=== PATIENT | male | born 1945 | race Caucasian/White ===

== ENCOUNTER 2018-01-09 17:46 | Emergency (ER) | payer MEDICARE ==
[2018-01-09] MEDS ORDERED: Catapres 0.1 MG PO ONE ×2 (18:24→22:33)
[2018-01-09] MEDS ORDERED: Catapres 0.1 MG ONE ×3 (18:29→22:44)
[2018-01-09] MEDS ORDERED: Sodium Chloride 0.9% 1000 ML 1,000 ML IV SCH (18:30)
[2018-01-09] MEDS ORDERED: Sodium Chloride 0.9% 1000 ML 1,000 ML ONE (18:30)
--- NOTE | 2018-01-09 18:41 | ERPHSYRPT ---
- History of Present Illness Time Seen by Provider: 01/09/18 18:05 Exam Limitations: clinical condition Patient Subjective Stated Complaint: pt reports he has had a headache for a few days-states that otc advil is not helping-denies pain elsewhere-denies sob Triage Nursing Assessment: pt pink warm and [id number] easy and nonlabored- moving all extremities with ease Physician History: PATIENT WITH A HISTORY OF HEADACHES SINCE NOV 08, 2017, PROGRESSIVE DISCOMFORT X 2 DAYS. STATES HIS BLOOD PRESSURE HAS BEEN ELEVATED X 1 WEEK. DENIE BLURRED VISION, SLURRED SPEECH, UNSTEADY GAIT. HAS HAD A PREVIOUS NORMAL HEAD CT AT [facility] 2 MONTHS AGO. Timing/Duration: day(s) Quality: throbbing Head Pain Location: global Severity of Pain-Max: moderate Severity of Pain-Current: moderate Recent Head Trauma: frequent headaches Modifying Factors: Improves With: exposure to light Associated Symptoms: denies symptoms Previous symptoms: same symptoms as today Allergies/Adverse Reactions: No Known Drug Allergies Allergy (Verified 01/09/18 17:58) Home Medications: Lisinopril 40 mg PO BID 09/26/15 [History] Oxycodone HCl/Acetaminophen [Percocet 7.5-325 mg Tablet] 1 each PO Q4-6HPRN PRN 04/21/16 [History] Aspirin 81 gm Chew [Baby Aspirin 81 mg Chew] 1 tab PO BID 09/09/16 [ History] Multivitamin [Multivitamins] 1 each PO DAILY 09/09/16 [History] Pantoprazole 40 mg [Protonix 40 mg IV] 40 mg PO BID 04/19/17 [History] Carvedilol 12.5 mg [Coreg 12.5 mg] 12.5 mg PO BID 06/08/17 [History] Finasteride 5 mg [Proscar 5 MG] 5 mg PO DAILY 06/08/17 [History] Glimepiride [Amaryl] 1 mg PO DAILY 06/08/17 [History] Tamsulosin HCl 0.4 mg [Flomax 0.4 MG] 0.4 mg PO BID 06/08/17 [History] Hx Influenza Vaccination/Date Given: Yes Hx Pneumococcal Vaccination/Date Given: Yes Immunizations Up to Date: Yes - Review of Systems Constitutional: No Symptoms, No Fever, No Chills Eyes: No Symptoms Ears, Nose, & Throat: No Symptoms Respiratory: No Symptoms, No Cough, No Dyspnea Cardiac: No Symptoms, No Chest Pain, No Edema, No Syncope Abdominal/Gastrointestinal: No Symptoms, No Abdominal Pain, No Nausea, No Vomiting, No Diarrhea Genitourinary Symptoms: Incontinence, No Dysuria Musculoskeletal: No Symptoms, No Back Pain, No Neck Pain Skin: No Symptoms, No Rash Neurological: Headache, No Dizziness, No Focal Weakness, No Sensory Changes Psychological: No Symptoms Endocrine: No Symptoms All Other Systems: Reviewed and Negative - Past Medical History Pertinent Past Medical History: Yes Cardiac History: Hypertension - Past Surgical History Past Surgical History: Yes Musculoskeletal: Joint Replacement Other Surgical History: pooja knee , hernia - Social History Smoking Status: Never smoker Exposure to second hand smoke: No Drug Use: none Patient Lives Alone: No - Nursing Vital Signs Nursing Vital Signs: Initial Vital Signs Temperature 97.9 F 01/09/18 17:54 Pulse Rate 75 01/09/18 17:54 Respiratory Rate 18 01/09/18 17:54 Blood Pressure 200/110 01/09/18 17:54 O2 Sat by Pulse Oximetry 97 01/09/18 17:54 Pain Scale Pain Intensity 8 - Physical Exam General Appearance: mild distress Eye Exam: PERRL/EOMI Ears, Nose, Throat Exam: normal ENT inspection, moist mucous membranes Neck Exam: normal inspection, supple, full range of motion, No meningismus Respiratory Exam: normal breath sounds, lungs clear Cardiovascular Exam: regular rate/rhythm, normal heart sounds Gastrointestinal/Abdominal Exam: soft, No tenderness, No distention Back Exam: normal inspection, normal range of motion Mental Status Exam: alert, oriented x 3, cooperative cherry dipper Exam: normal speech, PERRL, No facial droop Coordination/Gait Exam: normal cerebellar function Motor/Sensory Exam: no motor deficit, no sensory deficit DTR Exam: bicep (R): 2+, bicep (L): 2+, tricep (R): 2+, tricep (L): 2+, knee (R) : 2+, knee (L): 2+, ankle (R): 2+, ankle (L): 2+ Skin Exam: normal color, warm, dry, No rash SpO2 Interpretation: normal SpO2: 97 Oxygen Delivery: Room Air - CT Exams Head CT Interpretation: Tele-radiologist Report, No/Intracranial Hemorrhag Ordered Tests: Active Orders 24 hr Category Date Time Status IV Insertion STAT Care 01/09/18 18:20 Active Oxygen-ED Only NASAL CANNULA 2 lpm Care 01/09/18 18:20 Active HEAD WITHOUT CONTRAST [CT] Stat Exams 01/09/18 19:12 Taken CBC W DIFF Stat Lab 01/09/18 18:40 Completed CMP Stat Lab 01/09/18 18:40 Completed Medication Summary Generic Name Dose Route Start Last Admin Trade Name Freq PRN Reason Stop Dose Admin Sodium Chloride 1,000 mls @ 50 mls/hr 01/09/18 18:30 01/09/18 18:41 Sodium Chloride 0.9% 1000 Ml IV 02/08/18 18:29 50 mls/hr .Q20H MIRLANDE Administration Discontinued Medications Generic Name Dose Route Start Last Admin Trade Name Freq PRN Reason Stop Dose Admin Clonidine 0.2 mg 01/09/18 18:24 01/09/18 18:39 Catapres 0.1 Mg PO 01/09/18 18:25 0.2 mg STAT ONE Administration Clonidine Confirm 01/09/18 18:29 Catapres 0.1 Mg Administered 01/09/18 18:30 Dose 0.1 mg .ROUTE .STK-MED ONE Clonidine Confirm 01/09/18 18:40 Catapres 0.1 Mg Administered 01/09/18 18:41 Dose 0.1 mg .ROUTE .STK-MED ONE Hydralazine HCl 10 mg 01/09/18 19:26 01/09/18 19:32 Apresoline 20 Mg/Ml Inj IV 01/09/18 19:27 10 mg STAT ONE Administration Hydralazine HCl Confirm 01/09/18 19:30 Apresoline 20 Mg/Ml Inj Administered 01/09/18 19:31 Dose 20 mg .ROUTE .STK-MED ONE Hydralazine HCl 10 mg 01/09/18 20:03 01/09/18 20:27 Apresoline 20 Mg/Ml Inj IV 01/09/18 20:04 Not Given STAT ONE Hydralazine HCl 20 mg 01/09/18 20:05 01/09/18 20:06 Apresoline 20 Mg/Ml Inj IV 01/09/18 20:06 20 mg STAT ONE Administration Hydralazine HCl Confirm 01/09/18 20:05 Apresoline 20 Mg/Ml Inj Administered 01/09/18 20:06 Dose 20 mg .ROUTE .STK-MED ONE Lab/Rad Data: Laboratory Result Diagrams 01/09/18 18:40 01/09/18 18:40 Laboratory Results 01/09/18 01/09/18 Range/Units 18:40 18:40 WBC 12.0 H (4.0-10.5) K/mm3 RBC 4.62 (4.1-5.6) M/mm3 Hgb 13.4 (12.5-18.0) gm/dl Hct 40.1 L (42-50) % MCV 86.8 (78-100) fl MCH 29.0 (26-32) pg MCHC 33.4 (32-36) g/dl RDW 14.8 H (11.5-14.0) % Plt Count 281 (150-450) K/mm3 MPV 10.5 H (6-9.5) fl Gran % 87.7 H (36.0-66.0) % Lymphocytes % 8.5 L (24.0-44.0) % Monocytes % 3.2 (0.0-12.0) % Eosinophils % 0.3 (0.00-5.0) % Basophils % 0.3 (0.0-0.4) % Basophils # 0.03 (0-0.4) Sodium 139 (136-145) mEq/L Potassium 4.5 (3.5-5.1) mEq/L Chloride 104 (98-107) mEq/L Carbon Dioxide 24.7 (21-32) mEq/L Anion Gap 15.0 (5-15) MEQ/L BUN 17 (9-20) mg/dL Creatinine 1.72 H (0.55-1.30) mg/dl Estimated GFR 42 ML/MIN Glucose 145 H (70-110) MG/DL Calcium 9.0 (8.5-10.1) mg/dL Total Bilirubin 1.00 (0.2-1.0) mg/dL AST 24 (15-37) U/L ALT 33 (12-78) U/L Alkaline Phosphatase 81 (46-116) U/L Serum Total Protein 7.4 (6.4-8.2) gm/dL Albumin 4.0 (3.4-5.0) g/dL - Progress Progress: improved Progress Note: 01/09/18 18:38 ADMINISTERED IV NORMAL SALINE 100ML/HR, CATAPRES 0.2MG ORALLY FOLLOWED BY HYDRALAZINE 10MG AND HYDRALAZINE 20MG IV 01/09/18 22:27 Counseled pt/family regarding: lab results, diagnosis, need for follow-up, rad results - Departure Time of Disposition: 22:30 Departure Disposition: Home Clinical Impression: HYPERTENSION, CHRONIC CEPHALGIA Condition: Stable Critical Care Time: No Referrals: GEMINI URBINA MD [Primary Care Provider] - Additional Instructions: CONTINUE ALL CURRENT MEDICATIONS AND BEGIN CATAPRES 0.1MG TWICE DAILY. CONSULT YOUR PRIMARY CARE PROVIDER THIS WEEK FOR EVALUATION OF YOUR ELEVATED BLOOD PRESSURE. CONTINUE PAIN MEDICATIONS AT HOME.
[2018-01-09 19:04] LABS: BASOPHIL % 0.3 % (0.0-0.4); Basophil (Absolute #) 0.03 (0-0.4); Eosinophil % 0.3 % (0.00-5.0); Eosinophil (Absolute #) 0.04 (0-0.5); Granulocytes % 87.7 % (36.0-66.0); Hematocrit 40.1 % (42-50); Hemoglobin 13.4 gm/dl (12.5-18.0); Lymphocyte (Absolute #) 1.02 (1.0-4.6); Lymphocytes % 8.5 % (24.0-44.0); Mean Cell Volume 86.8 fl (78-100); Mean Corpuscular Hgb Concent. 33.4 g/dl (32-36); Mean Platelet Volume 10.5 fl (6-9.5); Monocyte (Absolute #) 0.38 (0.0-1.3); Monocytes % 3.2 % (0.0-12.0); Platelet Count 281 K/mm3 (150-450); Red Blood Count 4.62 M/mm3 (4.1-5.6); Red Cell Distribution Width 14.8 % (11.5-14.0)
[2018-01-09 19:21] LABS: Carbon Dioxide 24.7 mEq/L (21-32); Creatinine 1 1.72 mg/dl (0.55-1.30); Potassium 4.5 mEq/L (3.5-5.1); Total Protein 7.4 gm/dL (6.4-8.2)
[2018-01-09] MEDS ORDERED: APRESOLINE 20 MG/ML INJ IV ONE ×3 (19:26→20:05)
[2018-01-09] MEDS ORDERED: APRESOLINE 20 MG/ML INJ ONE ×2 (19:30→20:05)
[2018-01-09 22:53] VITALS: BP 153/77; PULSE 80; O2SAT 98
--- NOTE | 2018-01-10 08:51 | XRAY ---
Indication: Headache. Multiple contiguous axial images obtained through the head without contrast. Comparison: September 26, 2015. Again normal appearing brain parenchyma, ventricles, and bony calvarium. Visualized paranasal sinuses and mastoid air cells are clear. Impression: Stable normal CT head without contrast exam. Comment: Preliminary interpretation was made by [facility]. No discrepancy. CT DI 68.65
== END 2018-01-09 22:53 | disposition home or self-care (01) ==
LOC: ED 17:46
DX: I10 Essential (primary) hypertension (principal); R51 Headache; Z79.899 Other long term (current) drug therapy
CPT/HCPCS: 36000; 36415; 70450; 80053; 85025; 96360; 96361; 96374; 96376; 99284; J0360; A9270-GY